=== PATIENT | male | born 1980 | race Caucasian/White ===

== ENCOUNTER 2016-11-22 17:01 | Emergency (ER) | payer OTHER ==
[2016-11-22 17:55] LABS: BASO # 0.1 10_X3_uL (0.0-0.1); BASO % 0.9 % (0.2-1.2); EOS # 0.4 10_X3_uL (0.0-0.5); EOS % 6.5 % (0.8-7.0); GRAN # 3.4 10_X3_uL (1.8-5.4); GRAN % 49.6 % (34.0-67.9); HEMATOCRIT 40.9 % (40-51); HEMOGLOBIN 14.1 g/dL (13.7-17.5); LYMPH # 2.2 10_X3_uL (1.3-3.6); LYMPH % 32.8 % (21.8-53.1); MEAN CORPUSCULAR HEMOGLOBIN 30.1 pg (27.0-33.0); MEAN CORPUSCULAR HGB CONC 34.5 g/dL (32.0-36.0); MEAN CORPUSCULAR VOLUME 87.2 fL (79-92); MEAN PLATELET VOLUME 10.4 fl (7.5-11.5); MONO # 0.7 10_X3_uL (0.3-0.8); MONO % 10.2 % (5.3-12.2); PLATELET COUNT 155 x10_3/uL (163-337); RED BLOOD COUNT 4.69 x10_6/uL (4.6-6.1); WHITE BLOOD COUNT 6.8 x10_3/uL (4.2-9.1)
[2016-11-22 18:12] LABS: ALBUMIN 4.1 gm/dL (3.4-5.0); ALKALINE PHOSPHATASE 87 U/L (50-136); ALT/SGPT 20 U/L (7.53-40.17); AMYLASE 19 U/L (15.62-74.58); AST/SGOT 25 U/L (6.66-35.34); BILIRUBIN,TOTAL 0.28 mg/dL (0.0-1.0); BLOOD UREA NITROGEN 16 mg/dL (7-18); CARBON DIOXIDE 26 mmol/L (21-32); CREATININE 0.9 mg/dL (0.6-1.3); GLUCOSE,RANDOM 87 mg/dL (70-99); LIPASE 21 U/L (6.75-60.75); POTASSIUM 4.3 mmol/L (3.5-5.1); SODIUM 141 mmol/L (136-145); TOTAL PROTEIN 7.2 gm/dL (6.4-8.2)
[2016-11-22 18:47] LABS: URINE BILIRUBIN NEGATIVE (NEGATIVE); URINE BLOOD NEGATIVE (NEGATIVE); URINE GLUCOSE (UA) NORMAL (NORMAL); URINE KETONE NEGATIVE (NEGATIVE); URINE LEUKOCYTE ESTERASE TRACE (NEGATIVE); URINE NITRATE NEGATIVE (NEGATIVE); URINE PROTEIN NEGATIVE (NEGATIVE); UROBILINOGEN NORMAL mg/dL (<1.0)
[2016-11-22 18:59] LABS: URINE MUCUS TRACE; URINE RBC RARE /[HPF] (0-2); URINE SQUAMOUS EPITHELIAL CELL 0-10 /[HPF] (NONE SEEN); URINE WBC 0-5 /[HPF] (0-3)
== END 2016-11-22 21:58 | disposition home or self-care (01) ==
LOC: ER 17:01
PROVIDERS: General Practice
DX: R07.89 Other chest pain (principal); R10.9 Unspecified abdominal pain; R19.7 Diarrhea, unspecified; F17.210 Nicotine dependence, cigarettes, uncomplicated; F11.21 Opioid dependence, in remission
CPT/HCPCS: 36415; 71260; 80053; 81001; 82150; 83605; 83690; 85025; 87040; 93005; 99070; 99284-25; J7040; Q9967